=== PATIENT | male | born 1970 | race Caucasian/White ===

== ENCOUNTER 2024-09-07 14:32 | Outpatient (CLI) | payer OTHER, SELFPAY ==
[2024-09-07 14:56] LABS: Basophils Absolute Auto 0.1 K/mm3 (0.0-0.1); Basophils Percent Auto 1.2 % (0.2-1.2); Eosinophils Absolute Auto 0.1 K/mm3 (0-0.3); Eosinophils Percent Auto 1.5 % (0-4.4); Hematocrit 44.7 % (42.0-52.0); Hemoglobin 15.5 g/dL (14.0-18.0); Immature Granulocyte Absolute 0.04 K/mm3 (0.00-0.031); Immature Granulocyte Percent A 0.5 % (0-0.5); Lymphocytes Absolute Auto 2.34 K/mm3 (0.9-3.2); Lymphocytes Percent Auto 30.1 % (18.3-44.2); Mean Corpuscular HGB Conc 34.7 g/dl (32-36); Mean Corpuscular Hemoglobin 31.4 pg (26-34); Mean Corpuscular Volume 90.7 fl (80-100); Mean Platelet Volume 9.7 fl (7.4-10.4); Monocytes Absolute Auto 0.7 K/mm3 (0.1-0.6); Monocytes Percent Auto 8.4 % (2.6-8.5); Neutrophils Absolute Auto 4.5 K/mm3 (1.3-6.7); Neutrophils Percent Auto 58.3 % (45.5-73.1); Platelet Count Result 243 k/mm3 (150-375); Red Blood Count 4.93 M/mm3 (4.6-6.20); Red Cell Distribution Width 12.5 % (11.5-14.5); White Blood Count 7.8 K/mm3 (4.5-10.0)
[2024-09-07 16:28] LABS: Alanine Aminotransferase 66 U/L (6-50); Albumin Level 4.4 g/dL (3.5-5.1); Alkaline Phosphatase 90 U/L (38-126); Anion Gap 3 mmol/L (4-12); Aspartate Amino Transferase 64 U/L (17-59); Bilirubin,Total 0.9 mg/dL (0.2-1.3); Blood Urea Nitrogen 19 mg/dL (9-20); Calcium 9.1 mg/dL (8.4-10.2); Carbon Dioxide 29 mmol/L (22-30); Chloride 107 mmol/L (98-107); Estimated Glomerular Filt Rate 58; Glucose 115 mg/dL (65-110); Potassium 4.2 mmol/L (3.4-5.0); Sodium 139 mmol/L (137-145)
[2024-09-08 07:39] LABS: Beta-2-Microglobulin 1.95 mg/L (< OR = 2.51)
== END 2024-09-07 14:33 | disposition home or self-care (01) ==
PROVIDERS: PCP Internal Medicine; Visit Provider Internal Medicine Hematology & Oncology
DX: R59.1 Generalized enlarged lymph nodes (principal)
CPT/HCPCS: 36415; 80053; 82232; 85025

== ENCOUNTER 2024-09-20 08:05 | Outpatient (CLI) | payer OTHER, SELFPAY ==
--- NOTE | ~2024-09-20 | CT_ITS ---
EXAMINATION: CT chest abdomen pelvis w con DATE: 09/20/2024 09:03 INDICATION: Lymphadenopathy. TECHNIQUE: Computed tomography (CT) of the chest, abdomen, and pelvis was performed with 100 mL Omnip aque 350 intravenous contrast. Automated exposure control and iterative reconstruction technique were employed. The dose-length product was 1072.49 mGy-cm. COMPARISON: None FINDINGS: CHEST CT: The lungs demonstrate mild atelectasis. There is a 5 mm nodule in right upper lobe, likely benign. Ca lcified left lung nodules and calcified mediastinal lymph nodes are consistent with old granulomatous disease. No pleural effusion. The heart size is normal. No pericardial effusion. There is mild bilat eral gynecomastia. There is mild thoracic spondylosis. ABDOMEN/PELVIS CT: The liver, gallbladder, spleen, pancreas, adrenal glands, and kidneys are normal. There are bilateral inguinal hernias containing fat. There are no dilated loops of bowel. The appendix is not visualized . There are no pathologically enlarged lymph nodes. There is no free intraperitoneal fluid. There is severe lower lumbar spondylosis. IMPRESSION: 1. No lymphadenopathy. Reviewed, dictated and finalized at location A. IFIED COMPOSITES TECHNICIAN IMPRESSION: 1. No lymphadenopathy.
[2024-09-20 08:58] LABS: Estimated Glomerular Filt Rate 53
== END 2024-09-20 08:06 | disposition home or self-care (01) ==
PROVIDERS: PCP Internal Medicine; Visit Provider Internal Medicine Medical Oncology
DX: R59.1 Generalized enlarged lymph nodes (principal)
CPT/HCPCS: 71260; 74177; Q9967

== ENCOUNTER 2024-10-08 14:31 | Outpatient (CLI) | payer OTHER, SELFPAY ==
--- OUTSIDE RECORDS SUMMARY | 2024-10-08 15:26 | XMS_ITS | Clinical Summary ---
Author Organization [facility] Address [address] [place] [address] Phone Care Team Providers Care Recreation Program Specialist Name Role Phone Francis Wilkerson MD Primary Care Provider [phone] Allergies Active Allergy Reactions Criticality Noted Date Comments Erythromycin Unknown 07/31/2024 Medications losartan (COZAAR) 25 MG Tablet Take 25 mg by mouth daily. 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 Gender Identity Not on file Sexual Orientation Not on file Plan of Treatment Upcoming Encounters Date Type Department Care Team (Late st Contact Info) Description 11/27/2024 2:00 PM CDT Office Visit [facility] [address] [place] [address] Jcarlos Miller MD [address] [place] [id number] Health Maintenance Due Date Last Done Comments Hepatitis C Virus (HCV) Screening 1972 TdaP Immunization 1972 Hepatitis B Immunization (1 of 3 - 19+ 3-dose series) 1991 Colonoscopy 2017 Colorectal Cancer Screening 2017 Cologuard 2022 Immunochemical Fecal Occult Blood 2022 Pneumococcal Immunization (5 0+ years) (1 of 1 - PCV) 2022 Zoster Immunization (1 of 2) 2022 Influenza Immunization (#1) 2024 SARS-COV-2 Immunization (2023- season) 2024 Respiratory Syncytial Virus (RSV) Immunization (Adult) (1 - 1-dose 75+ series) 2047 Meningococcal Immunization (ACWY) Aged Out No longer eligible based on patient's age to complete this topic Pneumococcal Immunization Combined Aged Out No longer eligible based on patient's age to complete this topic Rotavirus Immunization Aged Out No lo nger eligible based on patient's age to complete this topic Insurance AETNA ASA on file Care Teams Recreation Program Specialist Relationship Specialty Start Date End Date Francis Wilkerson MD [address] [place] [address] PCP - General Internal Medicine 07/31/24
--- OUTSIDE RECORDS SUMMARY | 2024-10-08 15:26 | XMS_ITS | Data Portability ---
Author Organization [facility] Address [address] [place] [address] Assessment Encounter Date Assessment Date Assessment LastModified by Organization Details LastModified Time 07/30/2024 07/30/[address] soft tissue neck with contrast. Healthy lifestyle care instructions start losartan 25 mg daily neurology referral. Ophthalmology referral. He has no malaise there has not been any fever chills night sweats or weight loss. I will see him back in 1 month [email or web address] Not available 08/12/2024 17:32:57 09/17/2024 09/17/2024 he has seen the production administrator they are going to repeat some scans he is getting additional blood work but he states that the oncologist told him he did not really see anything to worrisome at this time. He does not remember what his blood pressure was at the oncologist office he has a blood pressure machine at home but he is not taking it on a daily basis I have told him to take it on a daily basis . Appointment in this office December 30, 2024 Not available 09/17/2024 14:19:37 Plan of Treatment Reminders Order Date Submit Date Provider Last Modified By Organization Details Last Modified Time Details Appointments ANY 15 2024 09:15A Drake Wilkerson MD Not available Not available Not available Lab None recorded. Referral optometri st referral 2023 024 [email or web address] [employer], [address] , [place], [address], 08/24/2024 17:01:[address] referral 2023 024 [email or web address] Jcarlos Miller MD, [address] [facility], [facility], [place], [address], 08/24/2024 17:02:12 Procedures None recorded. Surgeries None recorded. Imaging CT, neck, soft tissue, w/o contrast 2023 024 [facility] ([facility]), [address] [place], [address], 08/08/2024 08:54:50 Medication Orders losartan 25 mg tablet 2023 024 [facility] #[id number], [address], [place], [address], 07/30/2024 14:58:33 Patient TargetsNo targets recorded. Patient Instructions Encounter Date Encounter Id Patient Instructions Last Modified By Organization Details Last Modified Time 07/30/2024 [id number] A healthy lifestyle: care instructions [place] [id number] Not available 07/30/2024 14:58:33 Reason for Referral Cafeteria Food Server Referral for Dis order of eye movements Referring Physician: Francis Wilkerson, Internal Medicine, Encounter Date: 07/30/2024 Neurologist Referral for Dis order of eye movements Referring Physician: Francis Wilkerson, Internal Medicine, Encounter Date: 07/30/2024 Results Created Date Observation Date Name Description Value Unit Range Abnormal Flag Note LastModifiedBy Organization Detail LastModifiedTime 08/08/20 24 08/08/2024 CT, neck, soft tissu e, w/o contr ast No observ ation record ed. [facility] [address] [place], [address], 08/15/2024 17:39:24 09/21/19 25 09/20/2024 CT, chest + abdom en + pelvi s, w/ contr ast No observ ation record ed. [email or web address] [facility] [address] [facility] [address], [place], [address], 09/24/2024 14:01:51 Result Notes None recorded. Problems Name Problem SNOMED Code Status Onset Date Resolution Date Notes Provider Name and Address Organization Details Recorded Time Body mass index 30+ - obesity 449853028 Active 2023 BRYNN Tpaia, [facility] 14:07:21 Lymphadenopath y 77508662 Active 2023 Jessica Jaeger MA null, [facility] 14:46:12 Problem Notes None recorded. Procedures Surgical History Date Name Laterality Status Provider Name and Address Organization Details Recorded Time Appendectomy completed Danis Porter MA [facility] 07/30/2024 14:09:23 Imaging Results Imaging Date Name Status LastModified by Organiz ation Details LastModified Time 08/08/2024 CT, neck, soft tissue, w/o contrast completed [facility] [address] [place], [address], 08/15/2024 17:39:24 09/20/2024 CT, chest + abdomen + pelvis, w/ contrast completed [address] [facility] [address] [place] [address], [address], 09/24/2024 14:01:51 Procedure Notes None recorded. Medical Equipment None Reported. Allergies Allergen ID Allergen Name Allergen Category Reaction Reaction Severity Criticality Documentation Date Start Date Code Code System Note Provider Name and Address Organization Details Recorded Time [id number] [id number] 2824e erythromy khalif medicatio n Not available Not available Not available 07/30/2024 4053 RxNorm Not Available Not Available Not Available Medications Name Sig Start Date Stop Date Status Note LastModified by Organization Details LastModified Time losartan 25 mg tablet TAKE 1 TABLET BY MOUTH EVERY DAY active Not Available Not Available No t Available Vitals Date Recorded Respiratory rate Provider Name a nd Address Organization Details Last Updated DateTime 07/30/2024 18 /min Danis Porter MA [facility] 07/30/2024 14:03:24 Date Recorded Body weight Provider Name an d Address Organization Details Last Updated DateTime 07/30/2024 46977.17 g Danis Porter MA [facility] 2023 14:03:34 Date Recorded Body mass index (BMI) Body height Provider Name and Address Organization Details Last Updated DateTime 07/30/2024 30.6 kg/m2 177.8 cm Danis Porter MA [facility] 07/30/2024 14:03:30 Date Recorded Oxygen saturation Oxygen saturation in Arterial blood by Pulse oximetry Provider Name and Address Organization Details Last Updated DateTime 07/30/2024 99 % 99 % Danis Porter MA [facility] 07/30/2024 14:06:43 Date Recorded Systolic blood pressure Diastolic blood pressure Provider Name and Address Organization Details Last Updated DateTime 07/30/2024 148 mm[Hg] 82 mm[Hg] Danis Porter MA [facility] 07/30/2024 14:06:41 Social History Question Answer Notes LastModified by Organizat ion Details LastModified Time Tobacco Smoking Status Never Smoker [facility] 07/30/2024 14:05:06 Do You Have An Advance Directive? Yes Information not available 07/30/2024 What Is Your Level Of Alcohol Consumption? Occasional Information not available 07/30/2024 Are You Blind Or Do You Have Difficulty Seeing? No Glasses Information not available 07/30/2024 What Is Your Level Of Caffeine Consumption? Occasional Information not available 07/30/2024 In The 14 Days Before Symptom Onset, Have You Had Close Contact With A Laboratory-confir med COVID-19 While That Case Was Ill? No Information not available 07/30/2024 In The 14 Days Before Symptom Onset, Have You Had Close Contact With A Person Who Is Under Investigation For COVID-19 While That Person Was Ill? No Information not available 07/30/2024 Have You Been To An Area Known To Be High Risk For COVID-19? No Information not available 07/30/2024 Are You Currently Employed? Yes Information not available 07/30/2024 Are You Deaf Or Do You Have Serious Difficulty Hearing? No Information not available 07/30/2024 What Type Of Diet Are You Following? REGULAR Information not available 07/30/2024 Do You Or Have You Ever Used E-cigarettes Or Vape? Never Used Electronic Cigarettes Information not available 07/30/2024 Are There Any Guns Present In Your Home? No Information not available 07/30/2024 What Was The Date Of Your Most Recent Tobacco Screening? 07/30/2024 Information not available 07/30/2024 What Is Your Relationship Status? Information not available 07/30/2024 Do You Use Your Seat Belt Or Car Seat Routinely? Yes Information not available 07/30/2024 Do You Have Smoke And Carbon Monoxide Detectors In Your Home? Yes Information not available 07/30/2024 Do You Or Have You Ever Used Smokeless Tobacco? Currently Chews Tobacco Information not available 07/30/2024 Do You Use Any Illicit Or Recreational Drugs? No Information not available 07/30/2024 Do You Use Sunscreen Routinely? No Only In The Sun Information not available 07/30/2024 Has Tobacco Cessation Counseling Been Provided? No Information not available 07/30/2024 Do You Or Have You Ever Used Any Other Forms Of Tobacco Or Nicotine? Yes Information not available 07/30/2024 Sex: Male Functional Status Question Answer Note LastModified by Organizat ion Details LastModified Time Are you able to care for yourself? Yes Information not available 07/30/2024 What is your exercise level? Occasional Information not available 07/30/2024 Mental Status None recorded. Family History Relationship Description Onset Age of this Age Resolved Age Notes LastModified by Organization Details LastModified Time Father Malignant neoplastic disease [email or web address] Not available 2023 14:04:13 Medical History Condition Response Coronary Artery Disease N Other N Atrial Fibrillation N High Blood Pressure Y Kidney or Bladder Problems N Thyroid Problems N GI Problems N Depression N COPD N Blood Clots N Have you had a mammogram in the last yea r? N Skin Problems N Anemia N Heart Attack (CT) N Anxiety Disorder N Diabetes N Muscle, Joint, or Bone Problems N Seizures/Epilepsy N Have you had a colonoscopy in the last 1 0 years? N Acid Reflux (GERD) N Cancer N Stroke N Asthma N Allergies N Have you had a PSA blood test in the las t year? N High Cholesterol N Hepatitis N Liver Disease N Headaches N Heart Failure N Osteoporosis N Past Encounters Encounter ID Performer Location Encounter Start Date Encounter Closed Date Diagnosis/Indication Diagnosis SNOMED-CT Code Diagnosis ICD10 Code Diagnosis Note [id number] Francis Wilkerson MD [facility] [address] [place] [address] 07/30/2024 13:36:31 07/30/2024 14:38:18 Body mass index 30+ - obesity 041826231 Z68.30 Obesity 829637879 E66.9 Lymphadenopathy 93536037 R59.9 Essential hypertension 88795136 I10 Disorder o f eye movements 73717148 H55.89 [id number] Francis Wilkerson MD [facility] [address] [place] [address] 09/17/2024 10:55:36 09/17/2024 14:37:52 Essential hypertension 83554110 I10 Imaging re sult abnormal 876539176 R93.89 Health Concerns Section Related Observation LastModified by Organization Detai ls LastModified Time None Recorded Concern Status LastModified by Organization Details LastModified Time None Recorded Advance Directives Directive Y: Payers Encounter Date Sequence Insurance Name Policy Number Policy Montano Covered Member ID Montano Member ID Guarantor Name 07/30/2024 1 [employer] (PPO) [id number] Addison Patricio [id number] Addison Curry 09/17/2024 1 [employer]PP[employer]) [id number] Addison Patricio [id number] 1 Addisontone Curry Notes Date Note Type Note Provider Name and Address Organization Details Recorded Time 07/30/2024 text/html 53-year-old who went to the emergency room because he had some nausea dizziness felt like his eyes were isolating for a few minutes maybe little bit of dull headache went to the emergency room where workup included blood work as well as a CT angiogram of the head that was reportedly negative. Had another episode as well. No head trauma. CT scan commented on some lymphadenopathy. Medications none allergies erythromycin the reactions unknown surgeries appendectomy and surgery for a toe fracture family history father from cancer ENT and lungs. 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 Questionable lymphadenopathy seen on imaging following up with heme Onc Francis Wilkerson MD Attn: Accounting[address] [facility], [place], [address], [facility] 09/23/2024 15:28:26
--- OUTSIDE RECORDS SUMMARY | 2024-10-08 15:26 | XMS_ITS | CONTINUITY OF CARE DOCUMENT ---
Author Name kimberly harris Address Unknown Organization [facility] Address [address] [place] [address] Phone [phone] Care Team Providers Care Ecommerce Analyst Name Role Phone Dmitriy Vidal MD Unavailable Dmitriy Vidal MD Unavailable INSURANCE PROVIDERS Payer name Policy type / Coverage type [place] red republican ID [id number] PAY [id number] [id number]
--- OUTSIDE RECORDS SUMMARY | 2024-10-08 15:26 | XMS_ITS | Continuity of Care Document ---
Author Organization [facility] Address [address] [place] [address] [place] [address] Phone Care Team Providers Care Underground Utility Locator Name Role Phone Herb Almazan DO Unavailable Unavailable Advance Directives Directive Yes / No Effective Date File Name No Information Encounters Encounter Description Practice Location Reason(s) For Visit Diagnoses Date Provider Providers Copied on Encounter [facility], [address], [place], [place], [id number], [place] tel:[phone] [facility] [place] No Information Norah Al. [address] [facility], [place], [address], [place]. tel: [phone] Family History Family Member Type Diagnosis Age At Onset No Information Payers Payer name Insurance type Covered democrat ID Authoriza tion(s) No Information Social History Type Description Quantity Date Captured Comments Sex Male Smoking Status No Information Chief Complaint And Reason For Visit No Information Reason For Referral Reason For Referral No Information History Of Present Illness Encounter Date Complaint History Of Prese nt Illness No Information Functional Status Date Functional Assessmen t No Information Instructions Date Instruction Additional Infor mation No Information Assessments Type Assessment Date No Information Patient Care Teams Name Effective Dates (start - stop) Status Members No Information
--- OUTSIDE RECORDS SUMMARY | 2024-10-08 15:26 | XMS_ITS | Clinical Summary ---
Author Organization [facility] Case sahni Bradley Address [address] [place] [address] Care Team Providers Care Head Waiter/Waitress Banquet Name Role Phone Unavailable Primary Care Provider Unavailabl e Allergies Active Allergy Reactions Criticality Noted Date Comments Erythromycin Nausea and Vomiting,Swelling Low 09/07 Medications losartan (COZAAR) 25 mg tablet Take 25 mg by mouth daily. Active Active Problems No known active problems Encounters Date Type Department Care Team Description 10/08/2024 2:45 PM SENIOR CYTOGENETIC TECHNOLOGIST Office Visit [facility] Oncology and Hematology - [address] [place] [address] Guero Portillo MD 10/04/2024 External Device Data STL ABSTRACTION Provider, Abstract 10/03/2024 External Device Data STL ABSTRACTION Provider, Abstract 10/02/2024 External Device Data STL ABSTRACTION Provider, Abstract 09/25/2024 External Device Data STL ABSTRACTION Provider, Abstract 09/19/2024 Orders Only [facility] Oncology and Hematology - [address] [place] [address] Guero Portillo MD 09/13/2024 Orders Only [facility] Oncology and Hematology - [address] [place] [address] Guero Portillo MD 09/11/2024 External Device Data STL ABSTRACTION Provider, Abstract 09/07/2024 2:00 PM SENIOR CYTOGENETIC TECHNOLOGIST Office Visit [facility] Oncology and Hematology - [address] [place] [address] Katherine Flower MD Lymphadenopathy (Primary Dx) from Last 3 Months Family History Medical History Relation Name Comments No Known Problems Child 1 No Known Problems Child 2 Lung Cancer Father Throat Cancer Father No Known Problems Mother No Known Problems Sister Relation Name Status Comments Child 1 Alive Child 2 Alive Father Mother Alive Sister Alive Social History Tobacco Use Types Packs/Day Years Used Date Smoking Tobacco: Never Smokeless Tobacco: Current Chew Tobacco Cessation:Ready to Q uit: Not Asked; Counseling Given: Not Answered Alcohol Use Standard Drinks/Week Comments Yes 0 (1 standard drink = 0.6 oz pur e alcohol) Occasionally Sex and Gender Information Value Date Recorded Sex Assigned at Not on file Legal Sex Male 3:13 PM SENIOR CYTOGENETIC TECHNOLOGIST Gender Identity Not on file Sexual Orientation Not on file Last Filed Vital Signs Vital Sign Reading Time Taken Comments Blood Pressure 159/93 10/08/2024 2:48 PM SENIOR CYTOGENETIC TECHNOLOGIST Pulse 77 10/08/2024 2:45 PM SENIOR CYTOGENETIC TECHNOLOGIST Temperature 36.2 ??C (97.1 ??F) 10/08/2024 2:45 PM CS T Respiratory Rate 17 10/08/2024 2:45 PM SENIOR CYTOGENETIC TECHNOLOGIST Oxygen Saturation 97% 10/08/2024 2:45 PM SENIOR CYTOGENETIC TECHNOLOGIST Inhaled Oxygen Concentration - - Weight 98.8 kg (217 lb 12.8 oz) 10/08/2024 2:45 PM SENIOR CYTOGENETIC TECHNOLOGIST Height 177.8 cm (5' 10 ) 09/07/2024 1:33 PM SENIOR CYTOGENETIC TECHNOLOGIST Body Mass Index 31.25 09/07/2024 1:33 PM SENIOR CYTOGENETIC TECHNOLOGIST Plan of Treatment Health Maintenance Due Date Last Done Comments Pre-Diabetes and Diabetes Screening 1972 DTAP/TDAP/TD VACCINES (1 - Tdap) 1991 HEPATITIS B VACCINES (1 of 3 - 19+ 3-dose series) 08/12 COLORECTAL SCREENING 2017 Colorectal Cancer Screening 2017 FIT-DNA Q 3 years 2017 FIT/FOBT Q 1 year 2017 Flex Sig/CT Colonography Q 5 years 2017 ZOSTER VACCINE (1 of 2) 2022 INFLUENZA VACCINE (#1) 2024 Preventative Visit- Commercial 09/12/2024 Procedures Procedure Name Priority Date/Time Associated Diagnosis Comments COMPREHENSIVE METABOLIC PANEL Routine 09/07/2024 11:50 AM SENIOR CYTOGENETIC TECHNOLOGIST CBC WITH DIFFERENTIAL Routine 09/07/2024 11:45 AM SENIOR CYTOGENETIC TECHNOLOGIST BETA 2 MICROGLOBULIN, CSF Routine 2023 11:03 AM SENIOR CYTOGENETIC TECHNOLOGIST from Last 3 Months Results * COMPREHENSIVE METABOLIC PANEL (09/07/2024 11:50 AM SENIOR CYTOGENETIC TECHNOLOGIST) Blood us Guero Portillo MD CHEMISTRY ORDERABLES Final Resu lt * CBC WITH DIFFERENTIAL (09/07/2024 11:45 AM SENIOR CYTOGENETIC TECHNOLOGIST) Blood us Guero Portillo MD HEMATOLOGY ORDERABLES Final Res ult * BETA 2 MICROGLOBULIN, CSF (09/07/2024 11:03 AM SENIOR CYTOGENETIC TECHNOLOGIST) Cerebrospinal fluid CEREBROSPINAL FLUID / Unknown us Guero Portillo MD CHEMISTRY ORDERABLES Final Resu lt from Last 3 Months Insurance [facility]
--- OUTSIDE RECORDS SUMMARY | 2024-10-08 15:26 | XMS_ITS | Encounter Summary ---
Author Organization [facility] Address [address] [place] [address] Care Team Providers Care Bark Fitter Name Role Phone Unavailable Primary Care Provider Unavailabl e Encounter Details Date Type Department Care Team (Late st Contact Info) Description 10/08/2024 2:45 PM MEDICARE CONTACT SPECIALIST Office Visit [facility] Oncology and Hematology - [address] [facility] [address] [place] [address] Guero Portillo MD [address] [facility] [address] [place] [address] Social History Tobacco Use Types Packs/Day Years Used Date Smoking Tobacco: Never Smokeless Tobacco: Current Chew Tobacco Cessation:Ready to Q uit: Not Asked; Counseling Given: Not Answered Alcohol Use Standard Drinks/Week Comments Yes 0 (1 standard drink = 0.6 oz pur e alcohol) Occasionally Sex and Gender Information Value Date Recorded Sex Assigned at Not on file Legal Sex Male 3:13 PM MEDICARE CONTACT SPECIALIST Gender Identity Not on file Sexual Orientation Not on file documented as of this encounter Last Filed Vital Signs Vital Sign Reading Time Taken Comments Blood Pressure 159/93 10/08/2024 2:48 PM MEDICARE CONTACT SPECIALIST Pulse 77 10/08/2024 2:45 PM MEDICARE CONTACT SPECIALIST Temperature 36.2 ??C (97.1 ??F) 10/08/2024 2:45 PM CS T Respiratory Rate 17 10/08/2024 2:45 PM MEDICARE CONTACT SPECIALIST Oxygen Saturation 97% 10/08/2024 2:45 PM MEDICARE CONTACT SPECIALIST Inhaled Oxygen Concentration - - Weight 98.8 kg (217 lb 12.8 oz) 10/08/2024 2:45 PM MEDICARE CONTACT SPECIALIST Height - - Body Mass Index 31.25 09/07/2024 1:33 PM MEDICARE CONTACT SPECIALIST documented in this encounter Plan of Treatment Not on file documented as of this encounter Visit Diagnoses Not on filedocumented in this encounter
[2024-10-08 17:39] LABS: Lactate Dehydrogenase 146 U/L (120-246)
== END 2024-10-08 14:32 | disposition home or self-care (01) ==
PROVIDERS: PCP Internal Medicine; Visit Provider Internal Medicine Hematology & Oncology
DX: R59.1 Generalized enlarged lymph nodes (principal)
CPT/HCPCS: 36415; 83615